=== PATIENT | female | born 1980 | race Two or more races ===

== ENCOUNTER 2017-05-04 11:38 | Emergency (ER) | payer MEDICAID ==
[2017-05-04] MEDS ORDERED: NORMAL SALINE 1000 ML 1,000 ML IV PRN (12:46)
[2017-05-04 13:04] LABS: ABSOLUTE LYMPHOCYTES (AUTO) 1.4 10^3/uL (0.5-4.7); ABSOLUTE MONOCYTES (AUTO) 0.5 10^3/uL (0.1-1.4); ABSOLUTE NEUT (AUTO) 3.9 10^3/uL (1.7-8.2); BASOPHILS % (AUTO) 0.2 % (0-2); EOSINOPHILS % (AUTO) 0.4 % (0-6); HEMATOCRIT 39.3 % (36.0-47.0); HEMOGLOBIN 13.2 g/dL (12.0-15.5); HGB HCT DIFFERENCE 0.3; LYMPHOCYTES % (AUTO) 23.7 % (13-45); MEAN CORPUSCULAR HGB CONC 33.6 g/dL (32.0-36.0); MEAN CORPUSCULAR VOLUME 89 fl (80-97); MONOCYTES % (AUTO) 7.9 % (3-13); RED BLOOD COUNT 4.39 10^6/uL (3.72-5.28); RED CELL DISTRIBUTION WIDTH 13.2 % (11.5-14.0); SEGMENTED NEUTROPHILS % (AUTO) 67.8 % (42-78); WHITE BLOOD COUNT 5.8 10^3/uL (4.0-10.5)
--- NOTE | 2017-05-04 13:06 | EKG REPORT ---
SEVERITY:- NORMAL ECG - SINUS RHYTHM : Confirmed by: Valery Juarez MD 04-May-2017 13:05:45
[2017-05-04 13:21] LABS: ALANINE AMINOTRANSFERASE 29 U/L (9-52); ALBUMIN 4.3 g/dL (3.5-5.0); ALKALINE PHOSPHATASE 60 U/L (38-126); ANION GAP 9 (5-19); ASPARTATE AMINO TRANSFERASE 20 U/L (14-36); BILIRUBIN,DIRECT 0.1 mg/dL (0.0-0.4); BILIRUBIN,TOTAL 1.5 mg/dL (0.2-1.3); BLOOD UREA NITROGEN 14 mg/dL (7-20); CALCIUM 9.8 mg/dL (8.4-10.2); CARBON DIOXIDE 28 mmol/L (22-30); CHLORIDE 105 mmol/L (98-107); CREATINE KINASE 71 U/L (30-135); CREATININE RESULT 0.61 mg/dL (0.52-1.25); GLUCOSE 89 mg/dL (75-110); POTASSIUM 4.6 mmol/L (3.6-5.0); SODIUM 141.9 mmol/L (137-145); TOTAL PROTEIN 7.4 g/dL (6.3-8.2)
[2017-05-04 13:30] LABS: CREATINE KINASE MB 0.92 ng/mL (<4.55)
[2017-05-04 13:31] LABS: TROPONIN I < 0.012 ng/mL
--- NOTE | 2017-05-04 15:20 | ER Document Report ---
ED Medical Screen (RME) - General Chief Complaint: Passed Out Prior to Arrival Stated Complaint: SYNCOPE Time Seen by Provider: 05/04/17 12:42 Mode of Arrival: Ambulatory Information source: Patient Notes: Is a 37-year-old Citizen Of [place]-speaking female that presents to the emergency room after fainting spell. Patient does have a history of fainting in the past. 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 The patient states she was entering her room and there was a strong smell of smoke and she became nauseated, felt sweaty and then fainted. Patient states that she felt nauseated for approximately a half an hour after. Did have some pressure on her head after the episode and some blurry vision. He states she has had episodes of near fainting in the past. - HPI Onset: Just prior to arrival Onset/Duration: Gradual Quality of pain: No pain Severity: None Pain Level: Denies Associated Symptoms: Nausea. denies: Chest pain, Shortness of breath Exacerbated by: Denies Relieved by: Denies Similar symptoms previously: Yes Recently seen / treated by doctor: No Past Medical History - General Information source: Patient - Social History Cigarette use (# per day): No Chew tobacco use (# tins/day): No Frequency of alcohol use: None Drug Abuse: None Lives with: Family Family history: Reviewed & Not Pertinent - Medical History Medical History: Negative Renal/ Medical History: Denies: Hx Peritoneal Dialysis Past Surgical History: Reports: Hx Appendectomy Review of Systems - Review of Systems Constitutional: No symptoms reported EENT: No symptoms reported Cardiovascular: See HPI Respiratory: No symptoms reported Gastrointestinal: See HPI Genitourinary: No symptoms reported Female Genitourinary: No symptoms reported Musculoskeletal: No symptoms reported Skin: No symptoms reported Hematologic/Lymphatic: No symptoms reported Neurological/Psychological: No symptoms reported Physical Exam - Vital signs Vitals: Temp Pulse BP Pulse Ox 98.2 F 61 121/79 100 05/04/17 11:51 05/04/17 11:51 05/04/17 11:51 05/04/17 11:51 Notes: Physical exam: GENERAL: 7-year-old female, alert and oriented 3, no acute distress HEAD: Atraumatic, normocephalic. EYES: Pupils equal round and reactive to light, extraocular movements intact, sclera anicteric, conjunctiva are normal. ENT: TMs normal, nares patent, oropharynx clear without exudates. Moist mucous membranes. NECK: Normal range of motion, supple without lymphadenopathy or JVD. LUNGS: Breath sounds clear to auscultation bilaterally and equal. No wheezes rales or rhonchi. HEART: Regular rate and rhythm without murmurs, rubs or gallops. ABDOMEN: Soft, normoactive bowel sounds. No tenderness to palpation. No guarding, no rebound. No masses appreciated. EXTREMITIES: Normal range of motion, no pitting or edema. No clubbing or cyanosis. NEUROLOGICAL: Cranial nerves II through XII grossly intact. Normal speech, normal gait. PSYCH: Normal mood, normal affect. SKIN: Warm, Dry, normal turgor, no rashes or lesions noted. Course - Re-evaluation Re-evalutation: 05/04/17 15:16 Observed in the ER. Initial Accu-Chek was good. She was given IV fluids and was given some p.o. challenge. She is doing better. However follow-up with a primary care doctor. - Vital Signs Vital signs: Temp Pulse Resp BP Pulse Ox 98.2 F 61 13 126/72 H 100 05/04/17 11:51 05/04/17 11:51 05/04/17 15:01 05/04/17 15:01 05/04/17 15:01 - Laboratory Result Diagrams: 05/04/17 12:40 05/04/17 12:40 Laboratory results interpreted by me: 05/04/17 12:40 Total Bilirubin 1.5 H - EKG Interpretation by Me Rate: Bradycardia Rhythm: NSR - EKG shows sinus bradycardia with a ventricular rate of 51, no acute ST-T wave change Doctor's Discharge - Discharge Clinical Impression: Vaso vagal episode Condition: Stable Disposition: HOME, SELF-CARE Instructions: Vasovagal Symptoms ([facility]) Forms: Return to Work Referrals: SELINA ROTHMAN MD [COMMUNITY BASED STAFF] - Follow up as needed (The number of a primary care doctor: Call for an appointment. Copy of today's labs and EKG with you when you go to that appointment) Print Language: Citizen Of [place]
[2017-05-04 15:29] VITALS: BP 126/72
== END 2017-05-04 15:30 | disposition home or self-care (01) ==
LOC: ER 11:38
DX: R55 Syncope and collapse (principal); R11.0 Nausea; R61 Generalized hyperhidrosis
CPT/HCPCS: 93005; 99285; 96360; 36415; 82553; 82962; 82550; 84443; 85025; 81025; 80053; 84484; 93010; J7030

== ENCOUNTER 2018-05-01 09:00 | Emergency (ER) | payer MEDICAID ==
[2018-05-01] MEDS ORDERED: ONDANSETRON 4 MG TAB.RAPDIS SL ONE (09:22)
[2018-05-01] MEDS ORDERED: NORMAL SALINE 1000 ML 1,000 ML IV ONE (09:22)
--- NOTE | 2018-05-01 09:27 | ER Document Report ---
ED Medical Screen (RME) - General Chief Complaint: Shortness Of Breath Stated Complaint: DIZZINESS Time Seen by Provider: 05/01/18 09:21 Mode of Arrival: Ambulatory Information source: Patient - HPI Patient complains to provider of: Lightheadedness, palpitations, shortness of breath Onset: Other - 2 days ago Onset/Duration: Persistent Notes: 05/01/18 09:27 Patient is a 38-year-old female presenting to the emergency room complaining of palpitations with lightheadedness and shortness of breath, they have been going on for the past 2 days and started after patient took a pill to help her calm down, she was nervous because her mother was having surgery in [place], the pill was from [place] and she does not recall the name of it, but since then she has not been feeling well, she reports nausea, palpitations, shortness of breath and generalized weakness Past Medical History - Social History Chew tobacco use (# tins/day): No Frequency of alcohol use: Occasional Drug Abuse: None Family history: Reviewed & Not Pertinent Renal/ Medical History: Denies: Hx Peritoneal Dialysis Past Surgical History: Reports: Hx Appendectomy Physical Exam - Vital signs Vitals: Temp Pulse Resp BP Pulse Ox 98.5 F 66 20 122/76 98 05/01/18 09:06 05/01/18 09:06 05/01/18 09:06 05/01/18 09:06 05/01/18 09:06 Course - Vital Signs Vital signs: Temp Pulse Resp BP Pulse Ox 98.5 F 66 20 122/76 98 05/01/18 09:06 05/01/18 09:06 05/01/18 09:06 05/01/18 09:06 05/01/18 09:06
[2018-05-01 09:59] LABS: ABSOLUTE EOSINOPHILS # (AUTO) 0.1 10^3/uL (0.0-0.6); ABSOLUTE LYMPHOCYTES (AUTO) 1.4 10^3/uL (0.5-4.7); ABSOLUTE MONOCYTES (AUTO) 0.4 10^3/uL (0.1-1.4); ABSOLUTE NEUT (AUTO) 3.9 10^3/uL (1.7-8.2); BASOPHILS % (AUTO) 0.1 % (0-2); EOSINOPHILS % (AUTO) 0.9 % (0-6); HEMATOCRIT 40.8 % (36.0-47.0); HEMOGLOBIN 13.6 g/dL (12.0-15.5); LYMPHOCYTES % (AUTO) 24.6 % (13-45); MEAN CORPUSCULAR HEMOGLOBIN 28.8 pg (27.0-33.4); MEAN CORPUSCULAR HGB CONC 33.3 g/dL (32.0-36.0); MEAN CORPUSCULAR VOLUME 87 fl (80-97); PLATELET COUNT 221 10^3/uL (150-450); RED BLOOD COUNT 4.71 10^6/uL (3.72-5.28); RED CELL DISTRIBUTION WIDTH 13.4 % (11.5-14.0); SEGMENTED NEUTROPHILS % (AUTO) 67.4 % (42-78); TOTAL CELLS COUNTED % (AUTO) 100 %; WHITE BLOOD COUNT 5.8 10^3/uL (4.0-10.5)
[2018-05-01 10:14] LABS: APPEARANCE,URINE SLIGHTLY-CLOUDY; BILIRUBIN,URINE NEGATIVE (NEGATIVE); COLOR,URINE YELLOW; GLUCOSE, URINE NEGATIVE (NEGATIVE); KETONES,URINE NEGATIVE (NEGATIVE); LEUKOCYTE ESTERASE,URINE SMALL (NEGATIVE); NITRITE,URINE NEGATIVE (NEGATIVE); PROTEIN,URINE NEGATIVE (NEGATIVE); URINE SPECIFIC GRAVITY 1.027
[2018-05-01 10:24] LABS: ALANINE AMINOTRANSFERASE 28 U/L (9-52); ALBUMIN 4.3 g/dL (3.5-5.0); ALKALINE PHOSPHATASE 71 U/L (38-126); ANION GAP 10 (5-19); ASPARTATE AMINO TRANSFERASE 35 U/L (14-36); BILIRUBIN,DIRECT 0.2 mg/dL (0.0-0.4); BILIRUBIN,TOTAL 0.7 mg/dL (0.2-1.3); BLOOD UREA NITROGEN 13 mg/dL (7-20); CALCIUM 9.8 mg/dL (8.4-10.2); CARBON DIOXIDE 31 mmol/L (22-30); CHLORIDE 105 mmol/L (98-107); GLUCOSE 75 mg/dL (75-110); LIPASE 279.4 U/L (23-300); POTASSIUM 4.2 mmol/L (3.6-5.0); SODIUM 146.3 mmol/L (137-145); TOTAL PROTEIN 7.5 g/dL (6.3-8.2)
--- NOTE | 2018-05-01 11:01 | ER Document Report ---
ED General - General Chief Complaint: Shortness Of Breath Stated Complaint: DIZZINESS Time Seen by Provider: 05/01/18 09:21 Mode of Arrival: Ambulatory Notes: 38-year-old Nepali-speaking female who was interviewed with the aid of [employer] tobacco flavorer #[id number] by the name of [place]. States that today she is feeling dizzy , shaky and like she is having tachycardia and blurry direct vision. She states that yesterday she was feeling very anxious because her mom was having surgery so she took a quarter of an antianxiety pill whose name she does not know. States that it made her sleep all day yesterday and all night last night and when she woke up this morning she was having her symptoms of dizziness, blurry dark vision and increased heart rate. Patient has never taken this medication before. She brought with her from [place], does not know its strength or name. There was no change in her symptoms after eating or drinking Past Medical History - General Information source: Patient - Social History Smoking Status: Never Smoker Chew tobacco use (# tins/day): No Frequency of alcohol use: Occasional Drug Abuse: None Family History: Reviewed & Not Pertinent - States that her mother suffers from "everything" but also states that there is no history of heart attacks or strokes. Patient has suicidal ideation: No Patient has homicidal ideation: No Renal/ Medical History: Denies: Hx Peritoneal Dialysis Musculoskeletal Medical History: Reports Hx Fibromyalgia Past Surgical History: Reports: Hx Appendectomy Review of Systems - Review of Systems Constitutional: No symptoms reported EENT: Blurred vision Cardiovascular: See HPI, Palpitations, Dizziness. denies: Chest pain Respiratory: No symptoms reported -: Yes All other systems reviewed and negative Physical Exam - Vital signs Vitals: Temp Pulse Resp BP Pulse Ox 98.5 F 66 20 122/76 98 05/01/18 09:06 05/01/18 09:06 05/01/18 09:06 05/01/18 09:06 05/01/18 09:06 - Notes Notes: GENERAL: Alert, interacts well. No acute distress. HEAD: Normocephalic, atraumatic EYES: Pupils equal, round and reactive to light, extraocular movements intact. ENT: Oral mucosa moist, tongue midline. NECK: Full range of motion, supple, trachea midline. LUNGS: Clear to auscultation bilaterally, no wheezes, rales or rhonchi, no respiratory distress. HEART: Regular rate and rhythm, no murmurs, gallops, rubs. ABDOMEN: Soft, nontender, nondistended, bowel sounds present in all 4 quadrants. EXTREMITIES: Moves all 4 extremities spontaneously, no edema, radial and dorsalis pedis pulses 2/4 bilaterally. No cyanosis. NEUROLOGICAL: Alert and oriented x3, normal speech. PSYCH: Normal mood, normal affect. SKIN: Warm, Dry, normal turgor, no rashes or lesions noted. Course - Re-evaluation Re-evalutation: 05/01/18 10:59 CBC unremarkable, CMP shows slightly elevated sodium at 146.3 otherwise unremarkable, lipase normal, urinalysis does not show any , there is small leukocyte esterase but only 1 WBC and 9 scrips epithelial cells, patient denies symptoms of urinary tract infection, suspect this is contaminated. Patient but has been hydrated with a liter of normal saline, is feeling significant better, does admit that she still anxious over her mother surgery. Discussed with patient that even though she still feels like she is tachycardic she has not had an elevated heart rate in the time that she has been in the room on the monitor. Discussed with her that her symptoms could either be coming from anxiety from the fact that her mother is having surgery and she does not know exactly what is going on or they could be coming from a rebound effect from the unknown medication that she took. Patient is recommended not to take the medication anymore. She is offered a urine drug screen to determine what class of medication this may have been but she declines this. States she has medication at home with the name on the bottle she just does not recall the name. Patient will be discharged to home. She is encouraged to follow-up as an outpatient with psychiatry for her anxiety and also to consider following up with a sleep doctor for her fibromyalgia. - Vital Signs Vital signs: Temp Pulse Resp BP Pulse Ox 98.5 F 66 20 122/76 98 05/01/18 09:06 05/01/18 09:06 05/01/18 09:06 05/01/18 09:06 05/01/18 09:06 - Laboratory Result Diagrams: 05/01/18 09:44 05/01/18 09:44 Laboratory results interpreted by me: 05/01/18 05/01/18 09:44 09:44 Sodium 146.3 H Carbon Dioxide 31 H Urine Urobilinogen 2.0 H Ur Leukocyte Esterase SMALL H Discharge - Discharge Clinical Impression: Anxiety, Palpitations, Medication side effect Condition: Stable Disposition: HOME, SELF-CARE Additional Instructions: Do not know exactly what is causing your symptoms however I suspect they are coming from a combination of anxiety and side effect to your medication. Please do not take this medication again. Please consider seeing a sleep doctor for your fibromyalgia as fibromyalgia can be caused or worsened by poor sleep. Please also follow-up with a psychiatrist regarding your anxiety Forms: Return to Work Referrals: SUMEET SULLIVAN MD [ACTIVE STAFF] - Follow up as needed [facility] [Provider Group] - Follow up as needed
[2018-05-01 11:03] VITALS: BP 118/81
[2018-05-01 11:11] LABS: URINE AMPHETAMINES SCREEN NEGATIVE; URINE BARBITURATES SCREEN NEGATIVE; URINE BENZODIAZEPINES SCREEN NEGATIVE; URINE COCAINE SCREEN NEGATIVE; URINE MARIJUANA (THC) SCREEN UNCONFIRMED POSITIVE; URINE METHADONE SCREEN NEGATIVE; URINE PHENCYCLIDINE SCREEN NEGATIVE
--- NOTE | 2018-05-01 22:00 | EKG REPORT ---
SEVERITY:- BORDERLINE ECG - SINUS RHYTHM BORDERLINE T ABNORMALITIES, ANTERIOR LEADS : Confirmed by: Mati Morton 01-May-2018 22:00:17
== END 2018-05-01 11:08 | disposition home or self-care (01) ==
LOC: ER 09:00
DX: R00.2 Palpitations (principal); T43.505A Adverse effect of unspecified antipsychotics and neuroleptics, initial encounter; F41.9 Anxiety disorder, unspecified; H53.8 Other visual disturbances; R42 Dizziness and giddiness; R00.1 Bradycardia, unspecified
CPT/HCPCS: 93005; 99284; 96360; 36415; 83690; 84443; 85025; 81025; 80053; 81001; 80307; 93010; S0119; J7030

== ENCOUNTER 2019-07-21 11:14 | Emergency (ER) | payer OTHER, MEDICAID ==
[2019-07-21] MEDS ORDERED: ONDANSETRON HCL 8 MG TABLET PO ONE (11:49)
[2019-07-21] MEDS ORDERED: KETOROLAC TROMETHAMINE 60 MG/2 ML SDV IM ONE (11:49)
--- NOTE | 2019-07-21 11:51 | ER Document Report ---
ED Medical Screen (RME) - General Chief Complaint: Back Injury Stated Complaint: NECK, SHOULDER, BACK PAIN, NAUSEA Time Seen by Provider: 07/21/19 11:38 Notes: Patient is a 39-year-old female who presents to the emergency department with a chief complaint of a fall. She was working and she is walking down the aisle and a box fell on the floor and she slipped on a box. She stepped on it and now her waist, shoulders, feet, and legs hurt. She also feels nauseous. She felt normal before the fall. Patient speaks Samoan and varnish remover on, #[id number] was used for translation. Exam: Tender paraspinal muscles. Able to walk with no difficulty. I have greeted and performed a rapid initial assessment of this patient. A comprehensive ED assessment and evaluation of the patient, analysis of test results and completion of medical decision making process will be conducted by an additional ED providers. - Related Data Allergies/Adverse Reactions: No Known Allergies Allergy (Verified 07/21/19 11:43) Past Medical History - Social History Family history: Reviewed & Not Pertinent Renal/ Medical History: Denies: Hx Peritoneal Dialysis Musculoskeltal Medical History: Reports Hx Fibromyalgia Past Surgical History: Reports: Hx Appendectomy Physical Exam - Vital signs Vitals: Temp Pulse Resp BP Pulse Ox 98.4 F 62 18 136/76 H 98 07/21/19 11:28 07/21/19 11:28 07/21/19 11:28 07/21/19 11:28 07/21/19 11:28 Course - Vital Signs Vital signs: Temp Pulse Resp BP Pulse Ox 98.4 F 62 18 136/76 H 98 07/21/19 11:28 07/21/19 11:28 07/21/19 11:28 07/21/19 11:28 07/21/19 11:28
--- NOTE | 2019-07-21 12:44 | ER Document Report ---
ED Medical Screen (RME) - General Chief Complaint: Fall Injury Stated Complaint: NECK, SHOULDER, BACK PAIN, NAUSEA Time Seen by Provider: 07/21/19 11:38 TRAVEL OUTSIDE OF THE [place] IN LAST 30 DAYS: No - HPI Notes: 07/21/19 12:42 39-year-old female to the emergency department with complaints of low back pain with numbness and tingling in her legs after she sustained a fall just prior to arrival. She was placing a vacuum into a closet at work when she tripped over backwards a box. She said sheets she landed on her lower back and buttocks and had bladder and bowel incontinence. She also reports neck pain with some numbness into her arms. She denies any loss of consciousness. She admits to nausea and dizziness. She has not had this pain before. - Related Data Allergies/Adverse Reactions: No Known Allergies Allergy (Verified 07/21/19 11:43) Past Medical History - Social History Frequency of alcohol use: Occasional Drug Abuse: None Family history: Reviewed & Not Pertinent Renal/ Medical History: Denies: Hx Peritoneal Dialysis Musculoskeltal Medical History: Reports Hx Fibromyalgia Past Surgical History: Reports: Hx Appendectomy Physical Exam - Vital signs Vitals: Temp Pulse Resp BP Pulse Ox 98.4 F 62 18 136/76 H 98 07/21/19 11:28 07/21/19 11:28 07/21/19 11:28 07/21/19 11:28 07/21/19 11:28 Course - Vital Signs Vital signs: Temp Pulse Resp BP Pulse Ox 98.4 F 62 18 136/76 H 98 07/21/19 11:28 07/21/19 11:28 07/21/19 11:28 07/21/19 11:28 07/21/19 11:28
--- NOTE | 2019-07-21 13:32 | RADIOLOGY REPORT (SQ) ---
EXAM DESCRIPTION: CT CERVICAL SPINE WITHOUT COMPLETED DATE/TIME: 07/21/2019 1:11 pm REASON FOR STUDY: neck pain, fall COMPARISON: None. TECHNIQUE: Axial images acquired through the cervical spine without intravenous contrast. Images re viewed with lung, soft tissue and bone windows. Reconstructed coronal and sagittal MPR images review ed. Images stored on PACS. All CT scanners at this facility use dose modulation, iterative reconstruction, and/or weight based d osing when appropriate to reduce radiation dose to as low as reasonably achievable (ALARA). [facility]: Dose Right [facility]: CareDose [facility]: Dose Right [facility]: Teradose 4D [facility]: [employer] RADIATION DOSE: CT Rad equipment meets quality standard of care and radiation dose reduction techniq ues were employed. CTDIvol: 13.4 mGy. DLP: 245 mGy-cm. mGy. LIMITATIONS: None. FINDINGS: ALIGNMENT: Anatomic. MINERALIZATION: Normal. VERTEBRAL BODIES: No fractures or dislocation. DISCS: No significant disc disease. FACETS, LATERAL MASSES, POSTERIOR ELEMENTS: No fractures. No dislocation. No acute findings. HARDWARE: None in the spine. VISUALIZED RIBS: No fractures. LUNG APICES AND SOFT TISSUES: No significant or acute findings. OTHER: No other significant finding. IMPRESSION: No fracture or static subluxation of the cervical spine. TECHNICAL DOCUMENTATION: JOB ID: [id number] Quality ID # [id number]: Final reports with documentation of one or more dose reduction techniques (e.g., Au tomated exposure control, adjustment of the mA and/or kV according to patient size, use of iterative reconstruction technique) 2010 [employer]- All Rights Reserved Reading location - IP/workstation name: [email or web address]
[2019-07-21 14:14] LABS: ABSOLUTE LYMPHOCYTES (AUTO) 1.8 10^3/uL (0.5-4.7); ABSOLUTE MONOCYTES (AUTO) 0.4 10^3/uL (0.1-1.4); ABSOLUTE NEUT (AUTO) 3.9 10^3/uL (1.7-8.2); BASOPHILS % (AUTO) 0.2 % (0-2); EOSINOPHILS % (AUTO) 0.5 % (0-6); HEMATOCRIT 38.7 % (36.0-47.0); LYMPHOCYTES % (AUTO) 29.7 % (13-45); MEAN CORPUSCULAR HEMOGLOBIN 28.2 pg (27.0-33.4); MEAN CORPUSCULAR HGB CONC 33.5 g/dL (32.0-36.0); MEAN CORPUSCULAR VOLUME 84 fl (80-97); MONOCYTES % (AUTO) 6.2 % (3-13); PLATELET COUNT 240 10^3/uL (150-450); RED CELL DISTRIBUTION WIDTH 12.9 % (11.5-14.0); SEGMENTED NEUTROPHILS % (AUTO) 63.4 % (42-78); TOTAL CELLS COUNTED % (AUTO) 100 %; WHITE BLOOD COUNT 6.2 10^3/uL (4.0-10.5)
[2019-07-21 14:34] LABS: ANION GAP 10 (5-19); BLOOD UREA NITROGEN 11 mg/dL (7-20); CALCIUM 9.7 mg/dL (8.4-10.2); CARBON DIOXIDE 26 mmol/L (22-30); CHLORIDE 103 mmol/L (98-107); GLUCOSE 73 mg/dL (75-110); POTASSIUM 4.2 mmol/L (3.6-5.0)
[2019-07-21] MEDS ORDERED: LORAZEPAM INJ 2 MG/1 ML VIAL IV ONE (15:52)
--- NOTE | 2019-07-21 17:36 | RADIOLOGY REPORT (SQ) ---
EXAM DESCRIPTION: MRI LUMBAR SPINE WITHOUT COMPLETED DATE/TIME: 07/21/2019 4:38 pm REASON FOR STUDY: fall, numbness, incontinence COMPARISON: None. TECHNIQUE: Sagittal and Axial imaging includes T1, T2, STIR and gradient echo sequences. Coronal T2/ HASTE imaging. LIMITATIONS: None. FINDINGS: VISUALIZED UPPER ABDOMEN: Limited evaluation. No acute or suspicious findings suggested. SEGMENTATION: No transitional anatomy. The lowest well-developed disc space is labeled L5-S1. ALIGNMENT: Anatomic. VERTEBRAE: Intact. BONE MARROW: Normal. No marrow replacement or reactive changes. DISC SIGNAL: Mild loss of normal water signal at L5-S1 consistent with desiccation. POSTERIOR ELEMENTS: Generally intact. No pars defect evident. HARDWARE: None in the spine. CORD AND CONUS: Normal in size and signal intensity. Conus at the appropriate level. SOFT TISSUES: No aortic aneurysm seen. No bulky retroperitoneal adenopathy or mass. No paraspinal mas s or fluid. L1-L2: No significant spinal stenosis or exit foraminal stenosis. L2-L3: No significant spinal stenosis or exit foraminal stenosis. L3-L4: No significant spinal stenosis or exit foraminal stenosis. L4-L5: No significant spinal stenosis or exit foraminal stenosis. L5-S1: No significant spinal stenosis or exit foraminal stenosis. LOWER THORACIC: Incompletely imaged. No stenosis seen. SACRUM: Visualized upper sacrum intact. OTHER: No other significant findings. IMPRESSION: Essentially normal MRI of the lumbar spine. Early desiccation at L5-S1. TECHNICAL DOCUMENTATION: JOB ID: [id number] [employer] All Rights Reserved Reading location - IP/workstation name: [email or web address]
[2019-07-21 17:59] VITALS: BP 112/76
--- NOTE | 2019-07-21 18:14 | ER Document Report ---
ED Fall - General Chief Complaint: Fall Injury Stated Complaint: NECK, SHOULDER, BACK PAIN, NAUSEA Time Seen by Provider: 07/21/19 11:38 Mode of Arrival: Ambulatory Information source: Patient Notes: 39-year-old female presented to ED for complaint of low back pain with numbness and tingling to her legs. She states she fell just before coming to the emergency room. 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 And buttocks. She states she had some bladder and bowel incontinence due to the pain. She states she also had neck pain with some numbness to her arms. A CT of the neck was done before I saw the patient which was negative. She denied any loss of consciousness. She did have some nausea and dizziness. She states she never had any of these pains before. She was seen by provider before me and a MRI was also ordered for the lower back. She states she had a headache earlier but that was better. She states the neck pain was much better by the time I saw her. I did use the [employer] enrollment counselor [id number] for her initial interview with me. TRAVEL OUTSIDE OF THE [place] IN LAST 30 DAYS: No - HPI Occurred: Just prior to arrival Where: Work Context: Tripped Associated symptoms: Other - She states she had some incontinence of urine and bladder as well as dizziness numbness to the arms and numbness to the legs Location of injury/pain: Back, Neck Quality of pain: Sharp Severity: Moderate Pain Level: 2 - Related data Allergies/Adverse Reactions: No Known Allergies Allergy (Verified 07/21/19 11:43) Past Medical History - General Information source: Patient - Social History Smoking Status: Never Smoker Frequency of alcohol use: Occasional Drug Abuse: None Lives with: Family Family History: Reviewed & Not Pertinent - States that her mother suffers from "everything" but also states that there is no history of heart attacks or strokes. Patient has suicidal ideation: No Patient has homicidal ideation: No - Past Medical History Cardiac Medical History: Reports: None Pulmonary Medical History: Reports: None EENT Medical History: Reports: None Neurological Medical History: Reports: None Endocrine Medical History: Reports: None Renal/ Medical History: Reports: None Malignancy Medical History: Reports: None GI Medical History: Reports: None Musculoskeletal Medical History: Reports Hx Fibromyalgia Skin Medical History: Reports None Psychiatric Medical History: Reports: None Traumatic Medical History: Reports: None Infectious Medical History: Reports: None Past Surgical History: Reports: Hx Appendectomy, Hx Gynecologic Surgery - Colposcopy Review of Systems - Review of Systems Constitutional: No symptoms reported EENT: No symptoms reported Cardiovascular: No symptoms reported Respiratory: No symptoms reported Gastrointestinal: Nausea - States she was nauseated earlier but that was better Genitourinary: No symptoms reported Female Genitourinary: No symptoms reported Musculoskeletal: Back pain, Muscle pain, Neck pain Skin: No symptoms reported Hematologic/Lymphatic: No symptoms reported Neurological/Psychological: Headaches - States she had a headache earlier but that was better -: Yes All other systems reviewed and negative Physical Exam - Vital signs Vitals: Temp Pulse Resp BP Pulse Ox 98.4 F 62 18 136/76 H 98 07/21/19 11:28 07/21/19 11:28 07/21/19 11:28 07/21/19 11:28 07/21/19 11:28 Interpretation: Normal - General General appearance: Appears well, Alert - HEENT Head: Normocephalic, Atraumatic Eyes: Normal Pupils: PERRL - Respiratory Respiratory status: No respiratory distress Chest status: Nontender Breath sounds: Normal Chest palpation: Normal - Cardiovascular Rhythm: Regular Heart sounds: Normal auscultation Murmur: No - Abdominal Inspection: Normal Distension: No distension Bowel sounds: Normal Tenderness: Nontender Organomegaly: No organomegaly - Rectal Notes: Good rectal tone. Patient was seen examined with Julieta Hutchins RN. as cs associate. Lizette was used for the exam. - Back Back: Normal, Tender - Tenderness to the paraspinous muscles in the upper and lo wer back. No vertebral tenderness. - Extremities General upper extremity: Normal inspection, Nontender, Normal color, Normal ROM, Normal temperature General lower extremity: Normal inspection, Nontender, Normal color, Normal ROM, Normal temperature, Normal weight bearing. No: Malvin's sign - Neurological Neuro grossly intact: Yes Cognition: Normal Orientation: AAOx4 [place] Coma Scale Eye Opening: Spontaneous Hebert Coma Scale Verbal: Oriented Hebert Coma Scale Motor: Obeys Commands Hebert Coma Scale Total: 15 Speech: Normal Motor strength normal: LUE, RUE, LLE, RLE Sensory: Normal - Psychological Associated symptoms: Normal affect, Normal mood - Skin Skin Temperature: Warm Skin Moisture: Dry Skin Color: Normal Course - Re-evaluation Re-evalutation: 07/22/19 02:06 Discussed the results of the CT and MRI with the use of [employer] physician surgeon #[id number]. Patient verbalized understanding and agreement with treatment plan. who does speak Eritrean and Persian was present during her discharge instructions. Patient was able to verbalize that she would sign her discharge papers when they was signed because she understood her instructions. states he can read Eritrean and Persian and can go over the instructions with the patient again at home. - Vital Signs Vital signs: Temp Pulse Resp BP Pulse Ox 98.0 F 59 L 16 112/76 99 07/21/19 17:55 07/21/19 17:55 07/21/19 17:55 07/21/19 17:55 07/21/19 17:55 - Laboratory Result Diagrams: 07/21/19 13:59 07/21/19 13:59 Laboratory results interpreted by me: 07/21/19 13:59 Glucose 73 L - Diagnostic Test Radiology reviewed: Image reviewed, Reports reviewed Discharge - Discharge Clinical Impression: Cervical muscle pain, Degenerative disc disease at L5-S1 level Low back pain Qualifiers: Chronicity: acute Back pain laterality: bilateral Sciatica presence: with sciatica Sciatica laterality: bilateral sciatica Qualified Code(s): M54.42 - Lumbago with sciatica, left side Condition: Stable Disposition: HOME, SELF-CARE Instructions: Family Physicians / Practices, Use of [id number] Ibuprofen ([facility]) Additional Instructions: NECK INJURY (CERVICAL STRAIN): You have a neck strain. This is an injury to the muscles and ligaments in the neck. There is no evidence of a fracture of the neck bones. Also, no injury to the spinal cord or nerve roots was detected. Usually, stiffness and pain INCREASE for the first 24-48 hours after the injury. The pain will gradually resolve and the neck will become more mobile. Most patients are back at work or school within a few days. Typically, complete healing takes about two or three weeks. The usual initial treatment is rest and cold packs. A neck collar may be placed to keep the muscles of the neck at rest. Antiinflammatory and muscle relaxing medication are often used to reduce the spasm and irritation. You should call the doctor, or go to the hospital, if you develop numbness or weakness in any extremity, problems with your bladder or bowel, or pain radiating down the arms. MUSCLE STRAIN: You have strained a muscle -- torn the fibers within the muscle. This often occurs with strenuous exertion, or during an injury that suddenly stretches the muscle. The seriousness of a strain varies. Some strains heal within days, others cause problems for months. X-rays cannot show a muscle strain. X-rays are taken only if symptoms suggest that a fracture could be present. The usual treatment of a muscle strain is rest and ice packs. Sometimes, a sling, splint, or crutches may be necessary to rest the muscle. The muscle can be used again once pain subsides. Severe strains require a special exercise and stretching program to prevent permanent stiffness and disability. Your doctor will advise you if this will be necessary. Call the doctor immediately if pain or swelling becomes severe, or if numbness or discoloration develop. LOW BACK PAIN: Three out of every four people will have an episode of disabling back pain during their lifetime. Most commonly the pain is due to straining of the muscles and ligaments in the low back. Usual treatment includes: (1) Rest on a firm surface. Avoid lying on your stomach. (2) Ice pack the painful area. After a few days, gentle heat may be used intermittently to relax the area, or ice packs can be continued. (3) Medication may be needed -- muscle relaxers and antiinflammatory medicines are commonly used. (4) As the back improves, exercises are prescribed to strengthen the back and abdominal muscles. Your doctor will advise you on the proper care for your back at each stage in your recovery. You may be better in a few days -- or healing may take several weeks. If new symptoms of a "herniated disc" (radiation of pain, numbness, or tingling down the back of the leg or weakness in the leg) occur, you should be re-examined. Further testing may be necessary. USE OF TYLENOL (ACETAMINOPHEN): Acetaminophen may be taken for pain relief or fever control. It's much safer than aspirin, offering a wider range of "safe" dosages. It is safe during . Some brand names are Tylenol, Panadol, Datril, Anacin 3, Tempra, and Liquiprin. Acetaminophen can be repeated every four hours. The following are ma ximum recommended dosages: WEIGHT Dose Drops Elixir Geovanna wable(80mg) (LBS.) drprs=droppers tsp=teaspoon 6 40 mg 0.4 ml (1/2) 6-11 80 mg 0.8 ml (full) tsp 1 tab 12-16 120 mg 1 1/2 drprs 3/4 tsp 1 1/2 tabs 17-23 160 mg 2 drprs 1 tsp 2 tabs 24-30 240 mg 3 drprs 1 1/2 tsp 3 tabs 30-35 320 mg 2 tsp 4 tabs 36-41 360 mg 2 1/4 tsp 4 1/2 tabs 42-47 400 mg 2 1/2 tsp 5 tabs 48-53 480 mg 3 tsp 6 tabs 54-59 520 mg 3 1/4 tsp 6 1/2 tabs 60-64 560 mg 3 1/2 tsp 7 tabs 65-70 600 mg 3 3/4 tsp 7 1/2 tabs 71-76 640 mg 4 tsp 8 tabs 77-82 720 mg 4 1/2 tsp 9 tabs 83-88 800 mg 5 tsp 10 tabs >89 pounds or adults 650 mg to 900 mg Acetaminophen can be repeated every four hours. Maximum dose not to exceed 4000 mg a day. These maximum recommended dosages are slightly higher than the dosages written on the product container, but these dosages are very safe and below the toxic dosage for acetaminophen. Stretching Exercises for the Back The physician has recommended that you begin stretching exercises for your back. These are often used even while the back is painful. However, you should notify the physician if the activities seem to increase your pain. PELVIC TILT: Lie flat on your back with knees bent. Tighten your stomach and buttock muscles so it flattens your lower back against the floor. Hold 10 seconds. Repeat 10 times, twice daily. KNEE RAISE: Lying on the back with knees bent, raise one knee to your chest, then the other. Hold both knees against the chest 10 seconds, then lower one knee at a time. Repeat 10 times, twice daily. PARTIAL TRUNK RAISE: Lie face down, arms at your sides. Keeping your waist on the floor, use your arms raise your chest up. Support yourself on your elbows for 30 seconds. Repeat twice daily, increasing the time to two minutes as you recover. Exercise Program for the Shoulder Since the shoulder moves in so many directions, the joint attachment is weak. Muscles provide most of the stability to the shoulder. You must exercise your shoulder to prevent painful instability or stiffening. PASSIVE - These may be begun within a few days of the injury. While standing, lean forward, allowing the arm to hang down towards the floor. Move the arm in small circles while slowly twisting your chest towards and away from the hanging arm. Do this for one minute. ACTIVE - These may be performed when the doctor gives permission. Begin with the arms at the sides. Raise the arms forward (shoulder's width apart) until they reach shoulder level. Then slowly swing both arms back until they are aiming straight out away from each other. Then bring them forward again, and finally, lower them to your sides. Repeat 20 to 30 times. As you improve, put weights in your hands for the exercise. Start with one pound, and work up to 10 pounds. Never use more than is comfortable. Athletes may work up to 30 pounds. ICE PACKS: Apply ice packs frequently against the painful area. Many different schedules are recommended, such as "20 minutes on, 20 minutes off" or "one hour ice, two hours rest." If you need to work, you may need to go longer between ice treatments. You should plan to have the area ice packed AT LEAST one fourth of the time. The ice should be applied over the wrap, tape, or splint, or over a layer of cloth -- not directly against the skin. Some ice bags have a built-in cloth and can be put directly on the skin. WARM PACKS: After approximately two days, apply gentle heat (such as a heating pad or hot water bottle) for about 20 to 30 minutes about every two hours -- at least four times daily. Warmth and elevation will help you make a more rapid recovery, and will ease the pain considerably. Do not use HOT heat, and never apply heat for longer than 30 minutes. The continuous heat can invisibly damage skin and muscles -- even when no burn is seen on the surface. Damaged muscles can make you MORE sore. MUSCLE RELAXERS: Muscle relaxing medications are usually prescribed for acute muscle spasm or injury to the neck and back. They are often combined with antiinflammatory pain medication for increased relief. You may stop the muscle relaxer when the pain and stiffness have improved. Start the medication again if spasms recur. Muscle relaxers may cause drowsiness, especially with the first dose. Do n ot operate machinery or drive while under the effects of the medication. Most muscle relaxers last up to 24 hours. Do not combine the medication with alcohol. You have been given a written report of your CAT scan of the neck and MRI of the low back. There are no obvious injuries on either test. Please make sure you follow-up with your primary care doctor. FOLLOW-UP CARE: If you have been referred to a physician for follow-up care, call the physicians office for an appointment as you were instructed or within the next two days. If you experience worsening or a significant change in your symptoms, notify the physician immediately or return to the Emergency Department at any time for re-evaluation. Prescriptions: Cyclobenzaprine HCl [Flexeril 10 mg Tablet] 5 - 10 mg PO TIDP PRN #14 tablet PRN Reason: For Pain Forms: Return to Work
== END 2019-07-21 18:31 | disposition home or self-care (01) ==
LOC: ER 11:14
DX: M54.42 Lumbago with sciatica, left side (principal); M51.37 Other intervertebral disc degeneration, lumbosacral region; M54.2 Cervicalgia; R20.0 Anesthesia of skin; W01.0XXA Fall on same level from slipping, tripping and stumbling without subsequent striking against object, initial encounter; Y99.0 Civilian activity done for income or pay
CPT/HCPCS: 99283; 96372; 96374; 36415; 85025; 81025; 80048; 72148; 72125; J1885; S0119; J2060

== ENCOUNTER 2019-08-17 09:26 | Emergency (ER) | payer MEDICAID, OTHER ==
--- NOTE | 2019-08-17 10:41 | ER Document Report ---
ED GI/ - General Chief Complaint: Lower Abdominal Pain Stated Complaint: ABDOMINAL PAIN Time Seen by Provider: 08/17/19 10:09 Mode of Arrival: Ambulatory Information source: Patient TRAVEL OUTSIDE OF THE [place] IN LAST 30 DAYS: No - HPI Patient complains to provider of: Pelvic pain - pt. in accident at work approx. 1 month ago -- fell and injured neck, back, shoulder, and abdomen. She wasa seen here and CT/MRI of neck back WNL. Now with c/o vaginal pain and pelvic pain with dysuria. Denies vaginal bleeding. - Related Data Allergies/Adverse Reactions: No Known Allergies Allergy (Verified 08/17/19 09:29) Past Medical History - General Information source: Patient - Social History Smoking Status: Never Smoker Chew tobacco use (# tins/day): No Frequency of alcohol use: None Drug Abuse: None Family History: Reviewed & Not Pertinent - States that her mother suffers from "everything" but also states that there is no history of heart attacks or strokes. Patient has suicidal ideation: No Patient has homicidal ideation: No Renal/ Medical History: Denies: Hx Peritoneal Dialysis Musculoskeletal Medical History: Reports Hx Fibromyalgia Past Surgical History: Reports: Hx Appendectomy, Hx Gynecologic Surgery - Colposcopy Review of Systems - Review of Systems Constitutional: No symptoms reported EENT: No symptoms reported Cardiovascular: No symptoms reported Respiratory: No symptoms reported Gastrointestinal: No symptoms reported Genitourinary: See HPI, Dysuria, Pain Musculoskeletal: No symptoms reported Neurological/Psychological: No symptoms reported -: Yes All other systems reviewed and negative Physical Exam - Vital signs Vitals: Temp Pulse Resp BP Pulse Ox 98.0 F 66 18 130/78 H 100 08/17/19 09:29 08/17/19 09:29 08/17/19 09:29 08/17/19 09:29 08/17/19 09:29 - General General appearance: Appears well In distress: None - Respiratory Respiratory status: No respiratory distress Breath sounds: Normal - Cardiovascular Rhythm: Regular Heart sounds: Normal auscultation Murmur: No - Abdominal Inspection: Normal Distension: No distension Bowel sounds: Normal Tenderness: Nontender Organomegaly: No organomegaly - Genitourinary External exam: Normal Speculum exam: Normal, Cervix closed Vaginal bleeding: None Bimanuel exam: Normal Course - Re-evaluation Re-evalutation: 08/17/19 15:25 pt. feeling somewhat better on re-evaluation -- expressed desire to go home 08/17/19 15:34 - Vital Signs Vital signs: Temp Pulse Resp BP Pulse Ox 98.0 F 66 18 130/78 H 100 08/17/19 09:29 08/17/19 09:29 08/17/19 09:29 08/17/19 09:29 08/17/19 09:29 - Diagnostic Test Radiology reviewed: Reports reviewed - L ovarian cyst Discharge - Discharge Clinical Impression: Pelvic pain Ovarian cyst Qualifiers: Laterality: left Qualified Code(s): N83.202 - Unspecified ovarian cyst, left side Condition: Stable Disposition: HOME, SELF-CARE Additional Instructions: rest, take meds as prescribed, return if worse Prescriptions: Etodolac [Lodine] 400 mg PO BID #20 tablet Referrals: NINI GRAF MD [ACTIVE STAFF] - Follow up as needed
[2019-08-17 11:08] LABS: AMORPHOUS SEDIMENT,URINE TRACE /HPF; APPEARANCE,URINE SLIGHTLY-CLOUDY; BILIRUBIN,URINE NEGATIVE (NEGATIVE); COLOR,URINE YELLOW; GLUCOSE, URINE NEGATIVE (NEGATIVE); KETONES,URINE NEGATIVE (NEGATIVE); LEUKOCYTE ESTERASE,URINE NEGATIVE (NEGATIVE); NITRITE,URINE NEGATIVE (NEGATIVE); PROTEIN,URINE NEGATIVE (NEGATIVE); URINE SPECIFIC GRAVITY 1.017; UROBILINOGEN,URINE NEGATIVE mg/dL (<2.0)
[2019-08-17 11:54] LABS: T.VAGINALIS (WET MOUNT) NO TRICHOMONAS SEEN; WBCS (WET MOUNT) 1+ WBCS SEEN; YEAST (WET MOUNT) NO YEAST SEEN
[2019-08-17 13:23] LABS: CHLAM PCR NOT DETECTED (NOT DETECT)
[2019-08-17 15:53] VITALS: BP 119/78
--- NOTE | 2019-08-17 17:06 | RADIOLOGY REPORT (SQ) ---
EXAM DESCRIPTION: U/S NON OB PEL W/DOPPLER COMPLETED DATE/TIME: 08/17/2019 2:22 pm REASON FOR STUDY: pelvic pain COMPARISON: None. TECHNIQUE: Dynamic and static grayscale images acquired of the pelvis via transabdominal approach an d recorded on PACS. Additional selected color Doppler and spectral images recorded. LIMITATIONS: Limited examination due to overlying bowel gas. FINDINGS: UTERUS: Contour normal. No mass. ENDOMETRIAL STRIPE: No focal or generalized thickening. No masses. CERVIX: The cervix measures 2.8 cm in length. No nabothian cysts. RIGHT OVARY AND DOPPLER: Not visualized sonographically. LEFT OVARY AND DOPPLER: Normal size. A 3.1 x 2.8 x 2.7 cm cyst. Normal arterial vascular flow witho ut evidence for torsion. FREE FLUID: None noted. OTHER: No other significant finding. MEASUREMENTS: UTERUS: 7.9 x 4.6 x 3.7 cm ENDOMETRIAL STRIPE: 2 mm RIGHT OVARY: Not visualized LEFT OVARY: 3.3 x 2.8 x 2.7 cm IMPRESSION: 1. Limited examination due to overlying bowel gas. 2. The right ovary is not visualized sonographically. 3. Left ovarian cyst. COMMENT: Followup of asymptomatic benign ovarian cysts detected by ultrasound in PREMENOPAUSAL claudia ents Simple cyst: *? 5 cm: no followup *> 5 and ? 7 cm: yearly followup ultrasound *> 7 cm: further imaging (MRI) or surgical followup Hemorrhagic cyst *? 5 cm: no followup *> 5 cm: 6-12 week followup ultrasound to ensure resolution Endometrioma *Initial followup ultrasound 6-12 weeks, then yearly if not surgically removed Dermoid *Yearly followup ultrasound if not surgically removed Note: If cyst is clinically symptomatic or otherwise concerning, other followup may be warranted. Based on recommendations of the Society for Radiologists in Ultrasound Consensus Conference Statement 2010 on management of asymptomatic ovarian and other adnexal cysts imaged at ultrasound. TECHNICAL DOCUMENTATION: JOB ID: [id number] [employer]- All Rights Reserved Rev-02/27 Reading location - IP/workstation name: [email or web address]
== END 2019-08-17 15:45 | disposition home or self-care (01) ==
LOC: ER 09:26
DX: N83.202 Unspecified ovarian cyst, left side (principal); R10.2 Pelvic and perineal pain; R10.30 Lower abdominal pain, unspecified
CPT/HCPCS: 76856; 81001; 81025; 87210; 87491; 87591; 93976; 99284